=== PATIENT | female | born 1945 | race African-American/Black ===

== ENCOUNTER 2021-01-14 16:10 | Inpatient (IN) ==
[2021-01-14 16:57] LABS: Basophils % 0.2 % (0.0-0.8); Eosinophils % 0.1 % (0.00-10.9); Hematocrit 39.3 VOL% (35.7-47.0); Hemoglobin 12.5 GM/DL (12.0-16.0); Immature Granulocytes % 0.5 %; Immature Granulocytes Absolute 0.04 #; Lymphocytes # 0.9 10*3/uL (1.4-4.0); Mean Corpuscular HGB Conc 31.8 GM/DL (32-36); Mean Corpuscular Volume 87.1 FL (87-102); Mean Platelet Volume 9.9 FL (9.6-12.0); Monocytes % 5.1 % (1.7-12.7); Neutrophils % 84.1 % (38.7-73.9); Platelet Count 247 T/CUMM (130-400); Red Blood Count 4.51 MC/CUMM (3.8-5.5); White Blood Count 8.5 T/CUMM (4-12)
[2021-01-14 17:16] LABS: Bilirubin,Total 0.7 MG/DL (0.2-1.0); Calcium 8.9 MG/DL (8.5-10.1); Osmolality,Calculated 283.3 MOS/KG (273-304); Potassium 3.7 MMOL/L (3.5-5.1)
[2021-01-14] MEDS ORDERED: LABETALOL 20 MG/4 ML SYRINGE IV PRN (19:14)
[2021-01-14 20:03] LABS: Barbiturates Screen,Urine Negative (Negative); Benzodiazepines Screen,Urine Negative (Negative); Cannabinoid Screen,Urine Negative (Negative); Opiate Screen,Urine Negative (Negative); Phencyclidine Screen,Urine Negative (Negative)
[2021-01-14] MEDS: ENOXAPARIN 40 MG/0.4 ML SYRINGE SUBCUT SCH (20:34)
[2021-01-14] MEDS: ROSUVASTATIN 20 MG TABLET PO SCH (22:31)
[2021-01-15 02:10] LABS: Risk Ratio 2.59; VLDL Cholesterol 7.6 MG/DL
[2021-01-15] MEDS: VALSARTAN 80 MG TABLET PO SCH (08:58)
[2021-01-15] MEDS: DONEPEZIL 5 MG TABLET PO SCH (08:58)
[2021-01-15] MEDS: ASPIRIN 325 MG TABLET PO SCH (08:58)
[2021-01-15] MEDS: CLOPIDOGREL 75 MG TABLET PO SCH (08:58)
[2021-01-15] MEDS: GABAPENTIN 100 MG CAPSULE PO SCH (08:59)
[2021-01-15] MEDS: amLODIPine 5 MG TABLET PO SCH (08:59)
[2021-01-15] MEDS: ENOXAPARIN 40 MG/0.4 ML SYRINGE SUBCUT SCH (20:37)
[2021-01-15] MEDS: ROSUVASTATIN 20 MG TABLET PO SCH (20:38)
[2021-01-16 05:37] LABS: Basophils % 0.7 % (0.0-0.8); Eosinophils # 0.1 10*3/uL (0.0-0.87); Eosinophils % 2.4 % (0.00-10.9); Hematocrit 33.7 VOL% (35.7-47.0); Hemoglobin 11.2 GM/DL (12.0-16.0); Lymphocytes # 1.4 10*3/uL (1.4-4.0); Lymphocytes % 49.1 % (21.3-54.2); Mean Corpuscular HGB Conc 33.2 GM/DL (32-36); Mean Corpuscular Volume 84.3 FL (87-102); Mean Platelet Volume 9.9 FL (9.6-12.0); Monocytes % 13.3 % (1.7-12.7); Neutrophils % 34.5 % (38.7-73.9); Platelet Count 205 T/CUMM (130-400); White Blood Count 2.9 T/CUMM (4-12)
[2021-01-16 06:16] LABS: Atypical Lymphocytes Few; Eosinophils 3 % (0-10); Hypochromasia 1+; Lymphocytes 55 % (20-55); Microcytosis 1+; Ovalocytes Slight; Platelet Estimate Normal; Segmented Neutrophils 36 % (50-85); Total Cells Counted 100
[2021-01-16 06:26] LABS: Albumin 2.6 G/DL (3.4-5.0); Bilirubin,Total 0.8 MG/DL (0.2-1.0); Calcium 8.1 MG/DL (8.5-10.1); Potassium 3.4 MMOL/L (3.5-5.1); Total Protein 5.9 G/DL (6.4-8.2)
[2021-01-16] MEDS ORDERED: POTASSIUM CHLORIDE 20 MEQ TABLET PO ONE ×2 (07:34→09:00)
[2021-01-16] MEDS ORDERED: PANTOPRAZOLE 40 MG TABLET PO SCH (09:00)
[2021-01-16 09:18] LABS: Basophils % 0.3 % (0.0-0.8); Eosinophils # 0.1 10*3/uL (0.0-0.87); Eosinophils % 1.6 % (0.00-10.9); Hematocrit 35.9 VOL% (35.7-47.0); Hemoglobin 11.8 GM/DL (12.0-16.0); Immature Granulocytes % 0.3 %; Immature Granulocytes Absolute 0.01 #; Lymphocytes # 1.3 10*3/uL (1.4-4.0); Lymphocytes % 39.7 % (21.3-54.2); Mean Corpuscular HGB Conc 32.9 GM/DL (32-36); Mean Corpuscular Volume 85.5 FL (87-102); Mean Platelet Volume 9.7 FL (9.6-12.0); Monocytes % 10.3 % (1.7-12.7); Neutrophils % 47.8 % (38.7-73.9); Platelet Count 205 T/CUMM (130-400); White Blood Count 3.2 T/CUMM (4-12)
[2021-01-16] MEDS: ASPIRIN 325 MG TABLET PO SCH (09:37)
[2021-01-16] MEDS: GABAPENTIN 100 MG CAPSULE PO SCH (09:37)
[2021-01-16] MEDS: VALSARTAN 80 MG TABLET PO SCH (09:37)
[2021-01-16] MEDS: DONEPEZIL 5 MG TABLET PO SCH (09:37)
[2021-01-16] MEDS: amLODIPine 5 MG TABLET PO SCH (09:37)
[2021-01-16] MEDS: CLOPIDOGREL 75 MG TABLET PO SCH (09:37)
[2021-01-16 16:00] VITALS: BP 150/91
[2021-01-16] MEDS ORDERED: DIPYRIDAMOLE/ASPIRIN 200-25 MG CAPSULE PO SCH (21:00)
[2021-01-16] MEDS ORDERED: ROSUVASTATIN 20 MG TABLET PO SCH (21:00)
[2021-01-16] MEDS ORDERED: ENOXAPARIN 40 MG/0.4 ML SYRINGE SUBCUT SCH (21:00)
[2021-01-18] MEDS ORDERED: ERGOCALCIFEROL 50,000 UNIT CAPSULE PO SCH (09:00)
== END 2021-01-16 18:56 | disposition home health service (06) | DRG 66 ==
LOC: N.ED 16:10 → N.EDINP 16:10 → SUATTDRO 19:14 → N.4E 20:38
PROVIDERS: ADMIT Internal Medicine; ATTEND Hospitalist